=== PATIENT | female | born 1945 | race Asian ===

== ENCOUNTER 2019-11-20 22:08 | Emergency (ER) | payer OTHER ==
[~2019-11-20] VITALS: Ht 165.1 cm; Wt 86.2 kg
[2019-11-20 23:23] VITALS: BP 158/72; TEMP 98.2
== END 2019-11-20 23:23 | disposition home or self-care (01) ==
LOC: ED 22:08
PROC: 0HQ1XZZ Repair Face Skin, External Approach (ICD-10-PCS; principal; 2019-11-20)
DX: S01.81XA Laceration without foreign body of other part of head, initial encounter (principal); S09.8XXA Other specified injuries of head, initial encounter; W17.89XA Other fall from one level to another, initial encounter; Y92.89 Other specified places as the place of occurrence of the external cause
CPT/HCPCS: 99283; J7040

== ENCOUNTER 2019-11-28 13:19 | Emergency (ER) | payer OTHER ==
[~2019-11-28] VITALS: Ht 165.1 cm; Wt 86.2 kg
[2019-11-28 13:33] VITALS: BP 146/55; TEMP 98
== END 2019-11-28 14:02 | disposition home or self-care (01) ==
LOC: ED 13:19
DX: Z48.02 Encounter for removal of sutures (principal)